=== PATIENT | male | born 1985 | race African-American/Black ===

== ENCOUNTER 2019-12-01 21:58 | Emergency (ER) | payer OTHER ==
[~2019-12-01] VITALS: Ht 180.3 cm; Wt 72.7 kg
--- NOTE | 2019-12-01 22:33 | RAD ---
Examination: FOOT RIGHT 3V, ANKLE RIGHT 3V History: FOOT INJURY / Comparison/Correlation: None Findings: 3 images of the right foot and 3 images of the right ankle were provided. Ankle joint mortise is unremarkable. Soft tissue swelling about the medial malleolus is present. No displaced fracture or bone destruction. Calcific densities along the midlateral aspect of the talus of indeterminate significance. Lateral malleolar contour is unremarkable. Mild spurring of the dorsal aspect of the talus. No significant arthritic finding. Impression: Soft tissue swelling about the medial malleolus. No acute displaced fracture identified. Electronically signed by: John Tee MD (12/01/2019 10:30 PM) [facility]
[2019-12-01] MEDS ORDERED: HYDROcodone/APAP 5/325MG 1 TAB TABLET PO ONE (23:00)
[2019-12-01] MEDS ORDERED: NAPR-514 PO (23:03)
[2019-12-01] MEDS ORDERED: HYDR-2761 PO (23:03)
--- NOTE | 2019-12-01 23:05 | PHYS DOC ---
Past Medical History Past Medical History: No Pertinent History (JARRET EMERY APRN) Past Surgical History: No Surgical History (JARRET EMERY APRN) Smoking Status: Never Smoker Alcohol Use: Occasionally (JARRET EMERY APRN) General Adult EDM: Chief Complaint: TRAUMA ALERT HPI: HPI: Patient is a 34 year old AA male, accompanied by his , who presents the emergency department with complaints of right ankle and right foot pain. Patient states that he was up on a ladder approximately 8 feet when he lost his balance and jumped from the ladder. Patient reports that he landed on both of his feet. He denies any neck pain, back pain, loss consciousness, headache, abdominal pain, hip pain, numbness, tingling, or weakness. Patient states the injury occurred approximately 30 minutes prior to arrival. He currently rates the pain a 10 out of 10 on the pain scale, he denies any alleviating factors. He reports that the pain is worse with palpation and movement. (JARRET EMERY APRN) Review of Systems: Review of Systems: Constitutional: Denies fever or chills. [] Abdomen: Denies abdominal pain, saddle anesthesia, or loss of bowel/bladder control Musculoskeletal: Denies back pain; see HPI Neurologic: Denies, focal weakness or sensory changes. [] Psychiatric: Denies depression or anxiety. [] Complete ROS is negative unless otherwise stated in the HPI. (JARRET EMERY APRN) Heart Score: Risk Factors: Risk Factors: DM, Current or recent (<one month) smoker, HTN, HLP, family history of CAD, obesity. Risk Scores: Score 0 - 3: 2.5% MACE over next 6 weeks - Discharge Home Score 4 - 6: 20.3% MACE over next 6 weeks - Admit for Clinical Observation Score 7 - 10: 72.7% MACE over next 6 weeks - Early Invasive Strategies (JARRET EMERY APRN) Current Medications: Current Medications Medications (Trade) Dose Ordered Sig/Simon Start Time Stop Time Status Last Admin Dose Admin Acetaminophen/ Hydrocodone Bitart (Lortab 5/325) 1 tab 1X ONCE 12/01/19 23:00 12/01/19 23:01 12/01/19 22:53 1 TAB (JARRET EMERY APRN) Allergies: Allergies: Allergies Coded Allergies Type Severity Reaction Last Updated Verified No Known Drug Allergies 12/01/19 No (JARRET EMERY APRN) Physical Exam: PE: Constitutional: Well developed, well nourished, no acute distress, non-toxic izzy earance. [] HENT: Normocephalic, atraumatic, bilateral external ears normal, nose normal. [] Eyes: PERRLA, EOMI, conjunctiva normal, no discharge. [] Neck: Normal range of motion, no stridor. [] Cardiovascular:Heart rate regular rhythm Lungs & Thorax: Respirations even and unlabored, no retractions, no respiratory distress Abdomen: soft, no tenderness Back: Nontender, no deformity Skin: Warm, dry, no erythema, no rash. [] Extremities: Right ankle/foot: Lateral ankle tenderness to palpation without crepitus or obvious deformity, lateral right foot tenderness proximal to the fourth metatarsal without crepitus or obvious deformity, 2+ pedal and posterior tibial pulses, no cyanosis, ROM limited due to pain, diffuse edema noted to the ankle and proximal foot Neurologic: Alert and oriented X 3, no focal deficits noted. [] Psychologic: Affect normal, judgement normal, mood normal. [] (JARRET EMERY APRN) Current Patient Data: Vital Signs: Vital Signs Date Time Temp Pulse Resp B/P (MAP) Pulse Ox O2 Delivery O2 Flow Rate FiO2 12/01/19 22:53 18 99 12/01/19 22:10 97.3 88 162/88 (112) Room Air 97.3 (JARRET EMERY APRN) EKG: EKG: [] (JARRET EMERY APRN) Radiology/Procedures: Radiology/Procedures: PROCEDURE: ANKLE RIGHT 3V Examination: FOOT RIGHT 3V, ANKLE RIGHT 3V History: FOOT INJURY / Comparison/Correlation: None Findings: 3 images of the right foot and 3 images of the right ankle were provided. Ankle joint mortise is unremarkable. Soft tissue swelling about the medial malleolus is present. No displaced fracture or bone destruction. Calcific densities along the midlateral aspect of the talus of indeterminate significance. Lateral malleolar contour is unremarkable. Mild spurring of the dorsal aspect of the talus. No significant arthritic finding. Impression: Soft tissue swelling about the medial malleolus. No acute displaced fracture identified.[] (JARRET EMERY APRN) Course & Med Decision Making: Course & Med Decision Making Pertinent Labs and Imaging studies reviewed. (See chart for details) [] (JARRET EMERY APRN) Course & Med Decision Making I have reviewed the PA/PERIPATOLOGIST's note and Plan of Care. I was available for consultation as needed during the patient's visit in the emergency department. I agree with the clinical impression, plans and disposition. (KEVIN PASTOR MD) Dragon Disclaimer: Dragon Disclaimer: This electronic medical record was generated, in whole or in part, using a voice recognition dictation system. (JARRET EMERY APRN) Departure Departure Impression: Primary Impression: Pain in right ankle and joints of right foot Disposition: HOME, SELF-CARE Condition: STABLE Referrals: NO PCP (PCP) ANTON TURCIOS II, MD Patient Instructions: Ankle Pain Additional Instructions: Fill prescription(s) and use as directed. Recommend application of ice, elevation, and rest of affected extremity. Wear the splint that was placed until follow up appointment with Dr. Turcios. Return to the ER if your symptoms worsen. Scripts Hydrocodone Bit/Acetaminophen (HYDROCODONE-APAP 5-325 ) 1 Tab Tablet 0.5-1 TAB PO PRN Q6HRS PRN for SEVERE PAIN 7-10 for 5 Days, #10 TAB 0 Refills Prov: JARRET EMERY APRN 12/01/19 Naproxen (NAPROXEN) 500 Mg Tablet 1 TAB PO BID PRN for PAIN for 10 Days, #20 TAB 0 Refills Prov: JARRET EMERY APRN 12/01/19 Justicifation of Admission Dx: Justifications for Admission: Justification of Admission Dx: N/A (JARRET EMERY APRN) Splinting Splinting : Location: [facility] Hand-Made Type: orthoglass (U-splint) Splint: sugar-tong Pre-Proc Neuro Vasc Exam: normal Post-Proc Neuro Vasc Exam: normal, unchanged from pre-exam (JARRET EMERY APRN) JARRET EMERY APRN Dec 01, 2019 23:05 KEVIN PASTOR MD Dec 02, 2019 00:31
[2019-12-01 23:06] VITALS: BP 100/57
== END 2019-12-01 23:22 | disposition home or self-care (01) ==
LOC: ER 21:58
DX: M25.571 Pain in right ankle and joints of right foot (principal); R60.0 Localized edema; G89.11 Acute pain due to trauma; W11.XXXA Fall on and from ladder, initial encounter; Y93.89 Activity, other specified; Y92.89 Other specified places as the place of occurrence of the external cause; Y99.8 Other external cause status
CPT/HCPCS: 29515; 73610; 73630; 99285

== ENCOUNTER → 2019-12-29 | Outpatient (CLI) | payer OTHER ==
[2019-12-01 23:06] VITALS: BP 100/57
[~2019-12-29] MED LIST: HYDR-2761 PO; NAPR-514 PO
--- NOTE | 2019-12-29 12:15 | KCIC ---
Examination: MRI of the right ankle without contrast HISTORY: History of right ankle injury, pain, swelling COMPARISON: Radiograph from 12/26/2019 TECHNIQUE: Axial CT images of the right ankle performed without contrast. Coronal and sagittal reformats are performed. Exposure: One or more of the following individualized dose reduction techniques were utilized for this examination: 1. Automated exposure control 2. Adjustment of the mA and/or kV according to patient size 3. Use of iterative reconstruction technique FINDINGS: The attachment of the Achilles tendon grossly appears intact There is nondisplaced comminuted fracture of the lateral process of the talus with the fracture line extending to the lateral aspect of the distal talus, best visualized on series 2 image 59. The ankle mortise grossly appears unremarkable. There is a 3.5 cm soft tissue calcification identified posterior and medial to the flexor tendons just medial to the superior aspect of the calcaneus, best visualized on series 2 image 62 could be heterotopic calcification or soft tissue calcification or myositis ossificans. IMPRESSION: 1. Nondisplaced comminuted fracture of the lateral process of the talus with the fracture line extending to the lateral aspect of the distal talus, best visualized on series 2 image 59. 2. A 3.5 cm soft tissue calcification identified posterior and medial to the flexor tendons just medial to the superior aspect of the calcaneus, best visualized on series 2 image 62 could be heterotopic calcification or soft tissue calcification or myositis ossificans. Recommend MRI for further evaluation. Electronically signed by: Dane Humphrey MD (12/29/2019 12:12 PM) [id number]
== END ==
LOC: KCIC CT 10:47
PROVIDERS: ATTEND Orthopaedic Surgery Sports Medicine
DX: S99.911A Unspecified injury of right ankle, initial encounter (principal); R22.41 Localized swelling, mass and lump, right lower limb; X58.XXXA Exposure to other specified factors, initial encounter; Y93.89 Activity, other specified; Y92.89 Other specified places as the place of occurrence of the external cause; Y99.8 Other external cause status
CPT/HCPCS: 73700